=== PATIENT | female | born 2000 | race Caucasian/White ===

== ENCOUNTER 2018-02-03 18:00 | Emergency (ER) | payer OTHER ==
[2018-02-03 18:20] VITALS: BP 104/53; PULSE 65; TEMP 97.9; BMI 22.3
--- NOTE | 2018-02-03 18:20 | PDOC ---
Rapid Medical Evaluation Chief Complaint: Pain, Acute Time Seen by Provider: 02/03/18 18:18 Medical Evaluation: Allergies Allergy/AdvReac Type Severity Reaction Status Date / Time No Known Allergies Allergy Verified 02/03/18 18:17 02/03/18 18:20 The patient presents with a chief complaint of: abd pain, diarrhea I have performed a brief in-person evaluation of this patient. Pertinent physical exam findings: vss, I have ordered the following: labs The patient will proceed to the ED for further evaluation. Discharge Disposition - Referrals Referrals: Ronnell Bender MD [Primary Care Provider] - - Patient Instructions - Post Discharge Activity
[2018-02-03 18:58] LABS: HCG,QUALITATIVE URINE NEGATIVE
[2018-02-03 19:00] LABS: URINE APPEARANCE CLEAR; URINE BILIRUBIN NEGATIVE (<2.0 mg/dL); URINE BLOOD NEGATIVE (NEGATIVE); URINE COLOR LTYELLOW; URINE GLUCOSE (UA) NEGATIVE (NEGATIVE); URINE KETONE NEGATIVE (NEGATIVE); URINE LEUK ESTERASE NEGATIVE (NEGATIVE); URINE NITRITE NEGATIVE (NEGATIVE); URINE UROBILINOGEN NEGATIVE mg/dL (0.2-1.0)
[2018-02-03 19:06] LABS: URINE PROTEIN 2+ (NEGATIVE)
[2018-02-03 19:08] LABS: EPI CELLS RARE /HPF (FEW); URINE BACTERIA RARE /hpf (NONE SEEN); URINE MUCUS RARE
--- NOTE | 2018-02-03 19:13 | PDOC ---
History of Present Illness - General History Source: Patient Exam Limitations: No Limitations <RaystewartKimber - Last Filed: 02/03/18 19:52> - General History Source: Patient - History of Present Illness Initial Comments: 02/03/18 19:20 The patient is a 17 year old female, with no significant past medical history, who presents to the emergency department with, one day of bloating, nausea, and abdominal pain. She describes her abdominal pain as primarily localized to the lower quadrant and waxing and waning in nature. Secondary to her symptoms, the patient reports she had diarrhea yesterday which has since resolved. The patients last menses was 02/01. She denies recent fevers, chills, headache or dizziness. She denies recent vomit or constipation. She denies recent dysuria, frequency, urgency or hematuria. She denies recent chest pain or shortness of breath. Allergies: NKA Past surgical history: None reported. Social history: Nonsmoker. Denies EtOH use and recreational drug use. Primary Care Physician: Dr. Ronnell Bender <Nasim Leon - Last Filed: 02/03/18 19:54> - General Chief Complaint: Nausea Stated Complaint: ABDOMINAL PAIN Time Seen by Provider: 02/03/18 18:18 Past History - Past Medical History COPD: No - Immunization History Immunization Up to Date: Yes - Suicide/Smoking/Psychosocial Hx Smoking History: Never smoked <RaystewartKimber - Last Filed: 02/03/18 19:52> <Nasim Leon - Last Filed: 02/03/18 19:54> - Past Medical History Allergies/Adverse Reactions: Allergies Allergy/AdvReac Type Severity Reaction Status Date / Time No Known Allergies Allergy Verified 02/03/18 18:17 Home Medications: Ambulatory Orders NK [No Known Home Medication] 11/14/13 Review of Systems - Review of Systems Able to Perform ROS?: Yes Comments:: 02/03/18 19:20 CONSTITUTIONAL: Absent: fever, no chills, no fatigue EYES: Absent: visual changes ENT: Absent: ear pain, no sore throat CARDIOVASCULAR: Absent: chest pain, no palpitations RESPIRATORY: Absent: cough, no SOB GI: Present: Abdominal pain, nausea Absent: no vomiting, no constipation, no diarrhea GENITOURINARY: Absent: dysuria, no frequency, no hematuria MUSKULOSKELETAL: Absent: back pain, no arthralgia, no myalgia SKIN: Absent: rash NEURO: Absent: headache All Other Systems: Reviewed and Negative <Nasim Leon - Last Filed: 02/03/18 19:54> *Physical Exam - Vital Signs Last Vital Signs Temp Pulse Resp BP Pulse Ox 97.9 F 65 18 104/53 97 02/03/18 18:18 02/03/18 18:18 02/03/18 18:18 02/03/18 18:18 02/03/18 18:18 <RaystewartKimber - Last Filed: 02/03/18 19:52> - Vital Signs Last Vital Signs Temp Pulse Resp BP Pulse Ox 97.9 F 65 18 104/53 97 02/03/18 18:18 02/03/18 18:18 02/03/18 18:18 02/03/18 18:18 02/03/18 18:18 - Physical Exam Comments: 02/03/18 19:21 GENERAL: Well-appearing, well-nourished. No apparent distress. HEENT: Normocephalic, atraumatic. PERRL, EOM intact. CARDIOVASCULAR: Normal S1, S2. Regular rate and rhythm. PULMONARY: Clear to auscultation bilaterally. (+)ABDOMEN: + Generalized abdominal tenderness increased in the lower quadrants. Soft, non- distended. No guarding, rebound, or organomegaly. BACK: No CVA tenderness. EXTREMITIES: Normal ROM in all four extremities. No gross deformities. SKIN: Warm, dry. No rash NEUROLOGICAL: No focal neurological deficits. <Nasim Leon - Last Filed: 02/03/18 19:54> ED Treatment Course - LABORATORY CBC & Chemistry Diagram: 02/03/18 19:13 02/03/18 19:13 - ADDITIONAL ORDERS Additional order review: Laboratory Results 02/03/18 18:45 Urine Color Ltyellow Urine Appearance Clear Urine pH 6.0 Ur Specific [place] 1.011 Urine Protein 2+ H Urine Glucose (UA) Negative Urine Ketones Negative Urine Blood Negative Urine Nitrite Negative Urine Bilirubin Negative Urine Urobilinogen Negative Ur Leukocyte Esterase Negative Urine WBC (Auto) 3 Urine RBC (Auto) <1 Ur Epithelial Cells Rare Urine Bacteria Rare Urine Mucus Rare Urine HCG, Qual Negative <Andolino,Kimber - Last Filed: 02/03/18 19:52> - LABORATORY CBC & Chemistry Diagram: 02/03/18 19:13 02/03/18 19:13 - ADDITIONAL ORDERS Additional order review: Laboratory Results 02/03/18 18:45 Urine Color Ltyellow Urine Appearance Clear Urine pH 6.0 Ur Specific [place] 1.011 Urine Protein 2+ H Urine Glucose (UA) Negative Urine Ketones Negative Urine Blood Negative Urine Nitrite Negative Urine Bilirubin Negative Urine Urobilinogen Negative Ur Leukocyte Esterase Negative Urine WBC (Auto) 3 Urine RBC (Auto) <1 Ur Epithelial Cells Rare Urine Bacteria Rare Urine Mucus Rare Urine HCG, Qual Negative <Nasim Leon - Last Filed: 02/03/18 19:54> Medical Decision Making - Medical Decision Making 02/03/18 19:29 A/P: Patient here for evaluation of abdominal pain since last night, waxing and waning, associated with diarrhea no vomiting. Upon arrival into ER patient denies any pain states she had a prior to coming in. She describes pain as ". Cramps" however she does not normally experience this cramping. Denies any new foods, no fever, no vomiting. Plan: CBC, CMP, urinalysis, urine culture, urine 02/03/18 19:48 I am signing this patient out to my colleague: MARIBELL Easley In brief, this patient is being seen in the ED for a chief complaint of: Intermittent abdominal pain with diarrhea last night, last episode of 4:30 AM I have completed the initial assessment interview note and have ordered: [labs, UA, gonorrhea Chlamydia, Zofran I have reviewed the following results: UA, unremarkable, CBC unremarkable Laboratory Results - last 24 hr 02/03/18 02/03/18 18:45 19:13 WBC 4.8 RBC 3.96 Hgb 10.9 Hct 32.1 L MCV 81.1 MCH 27.5 MCHC 33.9 RDW 13.7 Plt Count 169 MPV 10.2 Neutrophils % 56.4 Lymphocytes % 34.9 Monocytes % 7.3 Eosinophils % 1.2 Basophils % 0.2 Urine Color Ltyellow Urine Appearance Clear Urine pH 6.0 Ur Specific [place] 1.011 Urine Protein 2+ H Urine Glucose (UA) Negative Urine Ketones Negative Urine Blood Negative Urine Nitrite Negative Urine Bilirubin Negative Urine Urobilinogen Negative Ur Leukocyte Esterase Negative Urine WBC (Auto) 3 Urine RBC (Auto) <1 Ur Epithelial Cells Rare Urine Bacteria Rare Urine Mucus Rare Urine HCG, Qual Negative Pending results are: CMP is still pending, currently Chlamydia still pending Plan for disposition is as follows: [Pending] 02/03/18 19:52 <Kimber Flores - Last Filed: 02/03/18 19:52> *DC/Admit/Observation/Transfer <Kimber Flores - Last Filed: 02/03/18 19:52> - Attestations Scribe Attestion: 02/03/18 19:21 Documentation prepared by Nasim Leon, acting as medical biller/coder for Kimber Flores NP. <Nasim Leon - Last Filed: 02/03/18 19:54> - Referrals Referrals: Ronnell Bender MD [Primary Care Provider] - - Patient Instructions - Post Discharge Activity
[2018-02-03 19:35] LABS: BASO % 0.2 % (0-2.0); EOS % 1.2 % (0-4.5); HEMATOCRIT 32.1 % (32.4-45.2); HEMOGLOBIN 10.9 GM/dL (10.7-15.3); LYMPH % 34.9 % (8-40); MCH 27.5 pg (25.7-33.7); MCHC 33.9 g/dl (32.0-36.0); MEAN CELL VOLUME 81.1 fl (80-96); MEAN PLT VOLUME 10.2 fl (7.5-11.1); MONO % 7.3 % (3.8-10.2); NEUT % 56.4 % (42.8-82.8); PLATELET COUNT 169 K/MM3 (134-434); RBC 3.96 M/mm3 (3.60-5.2); RDW 13.7 % (11.6-15.6); WHITE BLOOD COUNT 4.8 K/mm3 (4.0-10.0)
[2018-02-03] MEDS ORDERED: ONDANSETRON *ODT* 4 MG TABLET SL ONE (19:51)
--- NOTE | 2018-02-03 19:52 | PDOC ---
*Physical Exam - Vital Signs Last Vital Signs Temp Pulse Resp BP Pulse Ox 97.9 F 65 18 104/53 97 02/03/18 18:18 02/03/18 18:18 02/03/18 18:18 02/03/18 18:18 02/03/18 18:18 ED Treatment Course - LABORATORY CBC & Chemistry Diagram: 02/03/18 19:13 02/03/18 19:13 - ADDITIONAL ORDERS Additional order review: Laboratory Results 02/03/18 18:45 Urine Color Ltyellow Urine Appearance Clear Urine pH 6.0 Ur Specific [place] 1.011 Urine Protein 2+ H Urine Glucose (UA) Negative Urine Ketones Negative Urine Blood Negative Urine Nitrite Negative Urine Bilirubin Negative Urine Urobilinogen Negative Ur Leukocyte Esterase Negative Urine WBC (Auto) 3 Urine RBC (Auto) <1 Ur Epithelial Cells Rare Urine Bacteria Rare Urine Mucus Rare Urine HCG, Qual Negative 02/03/18 19:13 RBC 3.96 MCV 81.1 MCHC 33.9 RDW 13.7 MPV 10.2 Neutrophils % 56.4 Lymphocytes % 34.9 Monocytes % 7.3 Eosinophils % 1.2 Basophils % 0.2 Progress Note - Progress Note Progress Note: Received sign out from this practitioner Andolino. All laboratory testing is within normal limits. There is no evidence of pancreatitis, liver disease, liver disease, urinary tract infection, appendicitis. Patient denies any sexual activity is not having any vaginal bleeding or discharge. Testing for gonorrhea and Chlamydia still pending. But diet was explained to the patient who is upset about the amount of carbs but is willing to do this for a day or 2 until her stomach settles down. *DC/Admit/Observation/Transfer Diagnosis at time of Disposition: Gastroenteritis - Discharge Dispostion Disposition: HOME Condition at time of disposition: Stable Admit: No - Referrals Referrals: Ronnell Bender MD [Primary Care Provider] - - Patient Instructions Printed Discharge Instructions: DI for Viral Gastroenteritis -- Child, Gastroenteritis Diet - Post Discharge Activity
[2018-02-03] MEDS ORDERED: ONDANSETRON *ODT* 4 MG TABLET ONE (19:56)
[2018-02-03 19:59] LABS: ANION GAP 6 (8-16); BILIRUBIN,TOTAL 0.2 mg/dL (0.2-1.0); BLOOD UREA NITROGEN 12 mg/dL (7-18); CALCIUM 8.5 mg/dL (8.5-10.1); CHLORIDE 106 mmol/L (98-107); CO2 27 mmol/L (21-32); CREATININE 0.7 mg/dL (0.55-1.02); GLUCOSE,RANDOM 95 mg/dL (74-106); POTASSIUM 4.5 mmol/L (3.5-5.1); SGOT/AST 12 U/L (15-37); SGPT/ALT 13 U/L (12-78); SODIUM 139 mmol/L (136-145); TOT PROT 7.6 g/dl (6.4-8.2)
[2018-02-03 20:00] LABS: ALK PHOS 52 U/L (45-117)
== END 2018-02-03 20:30 | disposition home or self-care (01) ==
LOC: JERFT 18:00
DX: K52.9 Noninfective gastroenteritis and colitis, unspecified (principal)
CPT/HCPCS: 36415; 80053; 81003; 81015; 83690; 84703; 85025; 87086; 87491; 87591; 99281-25; Q0162

== ENCOUNTER 2018-07-24 17:37 | Emergency (ER) | payer OTHER ==
--- NOTE | 2018-07-24 18:25 | PDOC ---
Rapid Medical Evaluation Time Seen by Provider: 07/24/18 18:23 Medical Evaluation: Allergies Allergy/AdvReac Type Severity Reaction Status Date / Time No Known Allergies Allergy Verified 02/03/18 18:17 07/24/18 18:23 I have performed a brief in-person evaluation of this patient. The patient presents with a chief complaint of: abdominal pain today with nausea. Reports pain in left upper quadrant with no diarrhea, or vomiting Pertinent physical exam findings are NAD + luq tenderness even and unlabored breathing I have ordered the following: urine preg, urinalysis ordered The patient will proceed to Ed for further evaluation
[2018-07-24 18:27] VITALS: BP 101/54; PULSE 65; TEMP 98.1; BMI 23.1
[2018-07-24 19:58] LABS: HCG,QUALITATIVE URINE Negative
[2018-07-24 20:10] LABS: URINE APPEARANCE CLOUDY; URINE BILIRUBIN NEGATIVE (<2.0 mg/dL); URINE COLOR LTYELLOW; URINE GLUCOSE (UA) NEGATIVE (NEGATIVE); URINE KETONE NEGATIVE (NEGATIVE); URINE LEUK ESTERASE NEGATIVE (NEGATIVE); URINE NITRITE NEGATIVE (NEGATIVE); URINE PROTEIN NEGATIVE (NEGATIVE); URINE UROBILINOGEN NEGATIVE mg/dL (0.2-1.0)
[2018-07-24] MEDS ORDERED: RANITIDINE HCL 150 MG TABLET (FP) PO ONE (20:23)
[2018-07-24] MEDS ORDERED: KETOROLAC TROMETHAMINE 30 MG/1 ML VIAL IVPUSH ONE (20:23)
[2018-07-24] MEDS ORDERED: RANITIDINE HCL 150 MG TABLET (FP) ONE (20:28)
[2018-07-24] MEDS ORDERED: KETOROLAC TROMETHAMINE 30 MG/1 ML VIAL ONE (20:28)
--- NOTE | 2018-07-24 20:30 | PDOC ---
History of Present Illness - General Chief Complaint: Pain, Acute Stated Complaint: STOMACH PAIN Time Seen by Provider: 07/24/18 18:23 History Source: Patient Exam Limitations: No Limitations - History of Present Illness Initial Comments: 07/24/18 20:24 17 y/o F with no PMH came to ER with complaint of pain in left side of abdomen 10/10 in intensity, non radiating, cramping type, constant, decreased itself, nothing makes it better or worse. Dint get better in any position. Pain associated with nausea but no vomiting. Denies fever and chills, denies heart burn, denies yellow of urine and skin. Denies constipation and diarrhoea. Denies trauma, Denies burning micturation and change in frequency. LMP 2 weeks ago, states she is sxually active and is not using protection. 07/24/18 20:50 07/24/18 21:09 Past History - Past Medical History Allergies/Adverse Reactions: Allergies Allergy/AdvReac Type Severity Reaction Status Date / Time No Known Allergies Allergy Verified 07/24/18 18:23 Home Medications: Ambulatory Orders NK [No Known Home Medication] 11/14/13 COPD: No - Immunization History Immunization Up to Date: Yes - Suicide/Smoking/Psychosocial Hx Smoking History: Never smoked Review of Systems - Review of Systems Constitutional: No: Chills, Diaphoresis, Fever HEENTM: No: Blurred Vision Respiratory: No: Cough, SOB at Rest, Stridor, Wheezing ABD/GI: Yes: Nausea, Abdominal cramping. No: Abdominal Distended, Constipated, Diarrhea, Rectal Bleeding, Vomiting : No: Burning, Dysuria, Discharge, Frequency, Flank Pain Musculoskeletal: No: Back Pain Neurological: No: Headache, Numbness Psychiatric: No: Anxiety, Depression *Physical Exam - Vital Signs Last Vital Signs Temp Pulse Resp BP Pulse Ox 98.1 F 65 16 101/54 99 07/24/18 18:24 07/24/18 18:24 07/24/18 18:24 07/24/18 18:24 07/24/18 18:24 - Physical Exam General Appearance: Yes: Appropriately Dressed. No: Apparent Distress HEENT: positive: EOMI Neck: positive: Trachea midline, Normal Thyroid. negative: Supple Respiratory/Chest: positive: Lungs Clear, Normal Breath Sounds. negative: Chest Tender, Respiratory Distress, Accessory Muscle Use Cardiovascular: positive: Regular Rhythm, Regular Rate, S1, S2. negative: Edema Gastrointestinal/Abdominal: positive: Normal Bowel Sounds, Tender (mild in left lower and left upper quadrant), Soft Musculoskeletal: positive: Normal Inspection. negative: CVA Tenderness Extremity: positive: Normal Inspection, Normal Range of Motion. negative: Pedal Edema Integumentary: positive: Normal Color, Dry Neurologic: positive: residential life director II-XII NML intact, Fully Oriented, Alert, Normal Mood/ Affect, Normal Response, Motor Strength 03/08 ED Treatment Course - LABORATORY CBC & Chemistry Diagram: 07/24/18 20:37 07/24/18 20:37 - ADDITIONAL ORDERS Additional order review: Laboratory Results 07/24/18 19:30 Urine Color Ltyellow Urine Appearance Cloudy Urine pH 7.0 Ur Specific [place] 1.012 Urine Protein Negative Urine Glucose (UA) Negative Urine Ketones Negative Urine Blood Negative Urine Nitrite Negative Urine Bilirubin Negative Urine Urobilinogen Negative Ur Leukocyte Esterase Negative Urine HCG, Qual Negative - RADIOLOGY Radiology Studies Ordered: Category Date Time Status ABDOMEN FLAT & UPRIGHT [RAD] Stat Radiology 07/24/18 20:22 Ordered ABDOMEN US [US] Stat Ultrasound 07/24/18 20:21 Ordered Medical Decision Making - Medical Decision Making 07/24/18 20:35 17 y/o F with no PMH came to ER with complaint of pain in left side of abdomen 10/10 in intensity, non radiating, cramping type, constant, decreased itself, nothing makes it better or worse. Dint get better in any position. Pain associated with nausea but no vomiting. Denies fever and chills, denies heart burn, denies yellow of urine and skin. Denies constipation and diarrhoea. Denies trauma, Denies burning micturation and change in frequency. LMP 2 weeks ago, not sexually active, Denies . we will get cbc, cmp lipase, abdomen, xray we will give her acetaminophen and po zantac 07/24/18 21:06 07/24/18 21:10 Pelvic exam done by skinny kwon NP Patient requested female examiner : no tenderness, have white color discharge, no motion tenderness. swab sent for GC culture. we will get TV ultrasound. 07/24/18 22:09 07/24/18 22:40 cbc, cmp reviewed. Ua neative TV done report pending 07/24/18 23:16 TV report reviewed, no acute pathology, b/l small folicular cyst. Pain is likely from Mittelschmerz or repeated ovarian torsion. Discussed with Dr Chang. Patient can be discharged home with follow up with her pcp and ob-vehicle damage appraiser. Instructions explained to patient *DC/Admit/Observation/Transfer Diagnosis at time of Disposition: Pain, abdominal, LUQ - Discharge Dispostion Disposition: HOME - Referrals Referrals: Anita Reynoso MD [Staff Physician] - Ronnell Bender MD [Primary Care Provider] - - Patient Instructions Printed Discharge Instructions: DI for Abdominal Pain-Adult Additional Instructions: You presented to the emergency department today with left sided abdominal/ pelvic pain. While your labs, urine test, and ultrasound were normal, there is a possibility you may be twisting your ovary on and off which is a dangerous condition called ovarian torsion. Ovarian torsion is dangerous because it can cause your ovary to be damaged and this can affect your ability to get down the line. IF your pain returns, come back to the emergency department immediately for evaluation. Follow up with the grape pruner (referral included) in 1-2 days. Refrain from physical activity until you see the grape pruner. Drink plenty of liquid. Take over the counter tylenol or ibuprofen for pain. Return to the emergency department if you have any new, worsening, or concerning symptoms. - Post Discharge Activity
[2018-07-24 20:49] LABS: BASO % 0.5 % (0-2.0); EOS % 0.5 % (0-4.5); HEMATOCRIT 35.6 % (32.4-45.2); HEMOGLOBIN 12.2 GM/dL (10.7-15.3); LYMPH % 20.5 % (8-40); MCH 28.2 pg (25.7-33.7); MCHC 34.1 g/dl (32.0-36.0); MEAN CELL VOLUME 82.6 fl (80-96); MEAN PLT VOLUME 11.1 fl (7.5-11.1); MONO % 5.8 % (3.8-10.2); NEUT % 72.7 % (42.8-82.8); PLATELET COUNT 173 K/MM3 (134-434); RBC 4.31 M/mm3 (3.60-5.2); RDW 15.3 % (11.6-15.6); WHITE BLOOD COUNT 9.1 K/mm3 (4.0-10.0)
[2018-07-24] MEDS ORDERED: ACETAMINOPHEN 1000 MG/100 ML VIAL (NON FORMULARY) IVPB ONE (21:05)
[2018-07-24 21:23] LABS: ALBUMIN 4.2 g/dl (3.4-5.0); ALK PHOS 76 U/L (45-117); ANION GAP 8 MMOL/L (8-16); BILIRUBIN,TOTAL 0.3 mg/dL (0.2-1); BLOOD UREA NITROGEN 12 mg/dL (7-18); CALCIUM 9.8 mg/dL (8.5-10.1); CHLORIDE 108 mmol/L (98-107); CO2 27 mmol/L (21-32); CREATININE 0.8 mg/dL (0.55-1.3); GLUCOSE,RANDOM 89 mg/dL (74-106); LIPASE 124 U/L (73-393); POTASSIUM 4.5 mmol/L (3.5-5.1); SGOT/AST 34 U/L (15-37); SGPT/ALT 40 U/L (13-61); SODIUM 144 mmol/L (136-145); TOT PROT 7.9 g/dl (6.4-8.2)
[2018-07-24] MEDS ORDERED: ACETAMINOPHEN INJECTION 100 ML IVPB ONE (21:25)
--- NOTE | 2018-07-24 23:21 | PDOC ---
Attending Attestation - Resident Resident Name: Sedrick Katz - ED Attending Attestation I have performed the following: I have examined & evaluated the patient, The case was reviewed & discussed with the resident, I agree w/resident's findings & plan, Exceptions are as noted - HPI HPI: 07/24/18 23:29 The patient is a 17 year old female with no significant past medical history who presents to the ER with intermittent left sided abdominal pain for 2 months , but worse today. Patient describes the abdominal pain as 25/10 in intensity, nonradiating, cramping in nature, with associated nausea and localizes to her LLQ. She states the pain only occurs when she is running which she does daily. SHe states these episodes occur about every other day in her estimation. She denies alleviating or exacerbating factors and states the pain resolves when she stops running. Patient denies taking any pain medication. LMP 2 weeks ago. Patient reports she is sexually active and has had a few unprotected encounters. Denies vaginal DC or bleeding. Denies hx ovarian cysts but states sister has ovarian cysts. The patient denies chest pain, shortness of breath, headache, and dizziness. Denies fever, chills, vomit, diarrhea, and constipation. Denies vaginal discharge, dysuria, frequency, urgency, and hematuria. Allergies: NKA Past surgical history: None reported. Social history: No reported alcohol, drug, or cigarette use. PCP: Dr. Ronnell Bender - Physicial Exam PE: 07/24/18 23:36 GENERAL: Awake, alert, and fully oriented, in no acute distress EYES: PERRLA, sclera anicteric, conjunctiva clear ENT: Moist mucosa NECK: Normal ROM, supple LUNGS: Breath sounds equal, clear to auscultation bilaterally. No wheezes, and no crackles HEART: Regular rate and rhythm, normal S1 and S2, no murmurs, rubs or gallops ABDOMEN: Soft, nontender, normoactive bowel sounds. No guarding, no rebound. No masses. No CVAT REBAR BENDER: Ext genitalia normal. Cervix wnl, small amount white discharge in vault, no midline or adnexal ttp. No CMT. EXTREMITIES: Normal range of motion, no edema. No clubbing or cyanosis. No cords, erythema, or tenderness NEUROLOGICAL: Normal speech SKIN: Warm, Dry, normal turgor, no rashes or lesions noted. - Medical Decision Making 07/24/18 23:50 17yo F with no PMH presents to the ED with intermittent L sided lower abd pain for 2 months. Vitals wnl. Exam with no abd or pelvic ttp. Story concerning for intermittent ovarian torsion, especially as sxs occur with physical exertion. PT may also have mittelshmertz as LMP 2 weeks ago. Labs wnl. UPT neg. TVUS with good flow to ovaries and no ovarian cysts or other pathology. Explained to patient that these sxs may reflect ovarian torsion, offered to call REBAR BENDER consult to discuss the case but she prefers to leave. Her mom will take her to see Dr. Martin tomorrow. Explained to patient that ovarian torsion is a dangerous condition that could cause her to have fertility issues down the line and that if the pain were to return, she should come to the ED immediately for evaluation. Pt expressed understanding, requests DC home. I discussed the physical exam findings, ancillary test results and final diagnoses with the patient. I answered all of the patient's questions. The patient was satisfied with the care received and felt comfortable with the discharge plan and treatment plan. The patient will call their primary care physician within 24 hours to arrange follow-up and will return to the Emergency Department with any new, persistent or worsening symptoms.
== END 2018-07-24 23:29 | disposition home or self-care (01) ==
LOC: JER 17:37
PROC: 3E033NZ Introduction of Analgesics, Hypnotics, Sedatives into Peripheral Vein, Percutaneous Approach (ICD-10-PCS; principal; 2018-07-24)
PROC: 3E0333Z Introduction of Anti-inflammatory into Peripheral Vein, Percutaneous Approach (ICD-10-PCS; 2018-07-24)
DX: N83.02 Follicular cyst of left ovary (principal); N83.01 Follicular cyst of right ovary; N94.0 Mittelschmerz
CPT/HCPCS: 36415; 76830-TC; 80053; 81003; 83690; 84703; 85025; 87086; 87110; 87491; 87591; 99282-25; J0131